=== PATIENT | female | born 1995 | race Asian ===

== ENCOUNTER 2017-06-21 11:18 | Emergency (ER) | payer BC ==
[~2017-06-21] VITALS: Ht 160 cm; Wt 44.5 kg
[~2017-06-21 11:18] MED LIST: ADVIL; CLARITIN
[2017-06-21 11:33] VITALS: BP_SYST 113
[2017-06-21 12:20] LABS: BILIRUBIN,URINE NEGATIVE (NEGATIVE); BLOOD, URINE 3+ (NEGATIVE); CLARITY/URINE HAZY (CLEAR); COLOR,URINE YELLOW (YELLOW); GLUCOSE,URINE NEGATIVE (NEGATIVE); KETONES,URINE NEGATIVE (NEGATIVE); LEUKOCYTE ESTERASE ,URINE 3+ (NEGATIVE); NITRITE, URINE NEGATIVE (NEGATIVE); PH,URINE 6.5 (5.0-8.0); PROTEIN URINE NEGATIVE (NEGATIVE); UROBILINOGEN,URINE 0.2 (0.2-1.0)
[2017-06-21 12:55] LABS: BACTERIA,URINE FEW /HPF (None Seen); WBC,URINE 20-50 /HPF (0-3)
[2017-06-21 13:22] VITALS: BP_SYST 115
== END 2017-06-21 13:22 | disposition home or self-care (01) ==
LOC: SED 11:18
DX: N39.0 Urinary tract infection, site not specified (principal)
CPT/HCPCS: 81000-TC; 87086; 99284

== ENCOUNTER 2017-11-30 18:38 | Emergency (ER) | payer BC ==
[~2017-11-30] VITALS: Ht 162.6 cm; Wt 44.5 kg
[2017-11-30 18:40] VITALS: BP_SYST 121
[2017-11-30] MEDS ORDERED: KETOROLAC TROMETHAMINE 60 MG/2 ML VIAL IM ONE (19:00)
[2017-11-30] MEDS ORDERED: KETOROLAC TROMETHAMINE 30 MG VIAL IVP ONE (19:00)
[2017-11-30] MEDS ORDERED: ALBUTEROL SULFATE 0.083% 2.5 MG/3 ML VIAL.NEB INH ONE (19:00)
[2017-11-30] MEDS ORDERED: DEXAMETHASONE SOD PHOSPHATE 10 MG/ML VIAL IVP ONE (19:00)
[2017-11-30] MEDS ORDERED: NACL 0.9% 1,000 ML IV ONE (19:00)
[2017-11-30] MEDS ORDERED: ACETAMINOPHEN 500 MG TABLET PO ONE (20:00)
[2017-11-30 20:55] VITALS: BP_SYST 127
== END 2017-11-30 20:55 | disposition home or self-care (01) ==
LOC: SED 18:38
DX: J06.9 Acute upper respiratory infection, unspecified (principal); R03.0 Elevated blood-pressure reading, without diagnosis of hypertension
CPT/HCPCS: 36415; 71045; 81025; 86710; 94640; 96361; 96374; 96375; 99285; J1100; J1885; J7030